=== PATIENT | female | born 1965 | race African-American/Black ===

== ENCOUNTER 2018-02-15 00:02 | Emergency (ER) | payer OTHER ==
[~2018-02-15] VITALS: Ht 157.5 cm; Wt 81.7 kg
[~2018-02-15 00:02] MED LIST: DOXYCYCLINE 10100 MG PO; VICODIN 5-5001 EACH PO
[2018-02-15 01:35] LABS: ABSOLUTE NEUTROPHILS 4.9 thou/uL (1.4-8.2); BASOPHILS 0.6 % (0.0-2.0); HEMATOCRIT 40.1 % (37.0-47.0); HEMOGLOBIN 12.8 gm/dL (12.0-15.0); LYMPHOCYTES 16.7 % (24.0-44.0); MCH 26.2 pg (26.0-34.0); MCV 81.8 fL (80.0-100.0); MONOCYTES 9.2 % (1.0-8.0); PLATELET COUNT 152 thou/uL (150-400); POLYS 69.5 % (36.0-66.0); RDW 16.2 % (10.5-14.5); WBC 7.1 thou/uL (4.0-11.0)
[2018-02-15 01:45] LABS: CALCIUM 9.1 mg/dL (8.5-10.1); CREATININE 0.9 mg/dL (0.6-1.0); POTASSIUM 3.7 mmol/L (3.5-5.1)
[2018-02-15 01:50] LABS: URIC ACID* 5.4 mg/dL (2.6-7.2)
[2018-02-15] MEDS ORDERED: PREDNISONE 20 M20 MG PO (02:19)
[2018-02-15] MEDS ORDERED: TRAMADOL 50 MG50 MG PO (02:19)
[2018-02-15] MEDS ORDERED: NAPROSYN500 MG PO (02:19)
[2018-02-15 03:13] VITALS: BP 145/86
== END 2018-02-15 03:14 | disposition home or self-care (01) ==
LOC: ER 00:02
PROVIDERS: Emergency Medicine
DX: M65.4 Radial styloid tenosynovitis [de Quervain] (principal); M17.11 Unilateral primary osteoarthritis, right knee

== ENCOUNTER 2021-01-21 21:28 | Emergency (ER) | payer OTHER ==
[~2021-01-21] VITALS: Ht 157.5 cm; Wt 90.7 kg
[~2021-01-21 21:28] MED LIST changes: +NAPROSYN500 MG PO; +PREDNISONE 20 M20 MG PO; +TRAMADOL 50 MG50 MG PO
[2021-01-21] MEDS ORDERED: SUPER THERAVIT1 EACH PO (21:43)
[2021-01-21] MEDS ORDERED: CALCIUM GUMMIE1 EACH PO (21:43)
[2021-01-21 22:25] LABS: ABSOLUTE NEUTROPHILS 4.3 thou/uL (1.4-8.2); BASOPHILS 0.6 % (0.0-2.0); HEMATOCRIT 41.1 % (37.0-47.0); HEMOGLOBIN 13.4 gm/dL (12.0-15.0); LYMPHOCYTES 18.7 % (24.0-44.0); MCH 27.3 pg (26.0-34.0); MCHC 32.5 g/dL (28.0-37.0); MCV 83.8 fL (80.0-100.0); MONOCYTES 8.2 % (1.0-8.0); PLATELET COUNT 153 thou/uL (150-400); POLYS 69.5 % (36.0-66.0); RDW 15.2 % (10.5-14.5); WBC 6.2 thou/uL (4.0-11.0)
[2021-01-21 22:30] LABS: ANION GAP 10 mmol/L (7-16); BUN 16 mg/dL (7-18); CHLORIDE 105 mmol/L (98-107); CO2 28 mmol/L (21-32); CREATININE 0.9 mg/dL (0.6-1.0); GLUCOSE 87 mg/dL (74-106); POTASSIUM 3.6 mmol/L (3.5-5.1); SODIUM 143 mmol/L (136-145)
[2021-01-21 22:39] LABS: ALBUMIN 3.6 g/dL (3.4-5.0); SGOT 19 U/L (15-37); SGPT 30 U/L (30-65); TOTAL BILIRUBIN 0.2 mg/dL (0.2-1.0); TOTAL PROTEIN 7.4 g/dL (6.4-8.2); TROPONIN-I <0.06 ng/mL (<0.06); URINE BILIRUBIN NEGATIVE (Negative); URINE BLOOD NEGATIVE (Negative); URINE CLARITY CLEAR; URINE COLOR YELLOW; URINE GLUCOSE-RANDOM* NEGATIVE (Negative); URINE KETONES NEGATIVE (Negative); URINE NITRITE-REFLEX NEGATIVE (Negative); URINE PROTEIN (DIPSTICK) NEGATIVE (Negative); URINE SPECIFIC GRAVITY 1.015 (1.005-1.035)
[2021-01-21 22:57] LABS: URINE LEUKOCYTES-REFLEX 1+ (Negative)
[2021-01-21 22:58] LABS: CASTS None Seen /LPF (None Seen); MUCUS None Seen strn/LPF (None Seen); SQUAMOUS None Seen /LPF (0-3)
[2021-01-21 22:59] LABS: BACTERIA-REFLEX None Seen /HPF (None Seen); CRYSTALS None Seen /LPF (None Seen); TRANSITIONAL EPITHEL CELL 0-3 Few /LPF (None Seen); URINE RBC None Seen /HPF (NONE SEEN); URINE WBC-REFLEX 0-5 Rare /HPF (0-5)
[2021-01-21] MEDS ORDERED: LISINOPRIL10 MG PO (23:23)
[2021-01-21 23:31] VITALS: BP 171/81
--- NOTE | 2021-01-22 09:06 | EKG ---
[address] [place] [address] ELECTROCARDIOGRAM REPORT Name: ENRRIQUE CALLES Room #: DENVER SPRINGSEfra#: [id number] Admission: 01/21/21 Attend Phys: Discharge: 01/21/21 Date of : 61 Report #: [id number] [facility] ED Test Date: 2021-01-21 Test Time: 21:56:24 Pat Name: ENRRIQUE CALLES Department: Room: Gender: F [employer] Paraprofessional: JESSICA CHOU : 1965 Requested By: Kevin Maria Order Number: [id number] MD: Collins Watt Measurements Intervals [place] Rate: 61 P: 48 OK: 142 QRS: 0 QRSD: 102 T: 30 QT: 408 QTc: 411 Interpretive Statements Sinus rhythm Abnormal R-wave progression, early transition Left ventricular hypertrophy No previous ECG available for comparison Electronically Signed On 01-22-2021 9:05:59 CDT by Collins Watt [email or web address] <ELECTRONICALLY SIGNED> By: Collins Watt MD, [facility] 01/22/21 0905 [id number] Collins Watt MD, FACC /EPI
== END 2021-01-21 23:44 | disposition home or self-care (01) ==
LOC: ER 21:28
PROVIDERS: Emergency Medicine
DX: R51.9 Headache, unspecified (principal); R42 Dizziness and giddiness; I10 Essential (primary) hypertension; Z79.899 Other long term (current) drug therapy

== ENCOUNTER 2021-05-27 07:10 | Emergency (ER) | payer OTHER ==
[~2021-05-27] VITALS: Ht 154.9 cm; Wt 93.4 kg
[~2021-05-27 07:10] MED LIST changes: +CALCIUM GUMMIE1 EACH PO; +LISINOPRIL10 MG PO; +SUPER THERAVIT1 EACH PO
[2021-05-27 09:17] VITALS: BP 172/89
== END 2021-05-27 09:15 | disposition home or self-care (01) ==
LOC: ER 07:10
DX: M54.5 Low back pain (principal); S70.01XA Contusion of right hip, initial encounter; I10 Essential (primary) hypertension; W01.0XXA Fall on same level from slipping, tripping and stumbling without subsequent striking against object, initial encounter; Y93.89 Activity, other specified; Y92.89 Other specified places as the place of occurrence of the external cause; Y99.8 Other external cause status